=== PATIENT | male | born 1970 | race Hispanic/Latino ===

== ENCOUNTER 2020-09-30 22:34 | Emergency (ER) | payer MEDICARE, OTHER ==
[~2020-09-30] VITALS: Ht 162.6 cm; Wt 90.7 kg
[2020-10-01 00:33] VITALS: BP 157/95
== END 2020-10-01 00:33 | disposition home or self-care (01) ==
LOC: FSED 23:10
DX: G51.0 Bell's palsy (principal); I10 Essential (primary) hypertension
CPT/HCPCS: 70450; 99283

== ENCOUNTER 2023-11-19 11:58 | Emergency (ER) | payer MEDICAID, MEDICARE ==
[~2023-11-19] VITALS: Ht 162.6 cm; Wt 88.9 kg
[~2023-11-19 11:58] MED LIST: METHOCARBAMOL500 MG PO
[2023-11-19 12:06] VITALS: PULSE 65; RESP 18
[2023-11-19 12:56] LABS: BASOPHILS # (AUTO) 0.1 (0.0-0.1); BASOPHILS % 0.7 % (0.0-1.0); EOSINOPHILS # (AUTO) 0.3 (0.0-0.4); EOSINOPHILS % 3.6 % (0.0-6.0); HEMATOCRIT 45.1 % (38.2-49.6); HEMOGLOBIN 15.2 g/dL (14.0-18.0); LYMPHOCYTES # (AUTO) 2.2 (1.0-3.2); LYMPHOCYTES % 30.7 % (18.0-39.1); MEAN CORPUSCULAR HGB CONC 33.7 g/dL (31-35); MEAN CORPUSCULAR VOLUME 94.9 fL (81-99); MONOCYTES # (AUTO) 0.7 (0.2-0.8); MONOCYTES % 9.5 % (4.4-11.3); NEUTROPHILS % 55.4 % (38.7-80.0); PLATELET COUNT 243 x10e3/uL (140-360); RED BLOOD COUNT 4.75 x10e6/uL (4.3-5.7); RED CELL DISTRIBUTION WIDTH 13.1 % (11.7-14.4); WHITE BLOOD COUNT 7.14 x10e3/uL (4.8-10.8)
[2023-11-19 13:14] LABS: INR 0.94
[2023-11-19 13:21] LABS: ALBUMIN 3.9 g/dL (3.5-5.0); ALBUMIN/GLOBULIN RATIO 0.9 (0.8-2.0); ANION GAP 14.9 mmol/L (8-16); BILIRUBIN,TOTAL 0.5 mg/dL (0.2-1.2); CALCIUM 9.1 mg/dL (8.4-10.2); CREATININE, SERUM 0.83 mg/dL (0.72-1.25); POTASSIUM 3.9 mmol/L (3.5-5.1); TOTAL PROTEIN 8.1 g/dL (6.5-8.1)
[2023-11-19] MEDS ORDERED: IOPAMIDOL 370 MG/ML 100 ML INFUS..BTL INJ ONE (13:31)
[2023-11-19] MEDS ORDERED: SODIUM CHLORIDE 0.9% 100 ML ONE (13:31)
[2023-11-19] MEDS ORDERED: PREDNISONE20 MG PO (14:38)
[2023-11-19 14:54] VITALS: BP 146/78; PULSE 72; RESP 17; O2SAT 100
== END 2023-11-19 14:56 | disposition home or self-care (01) ==
LOC: ER 12:28
DX: G51.0 Bell's palsy (principal); R51.9 Headache, unspecified
CPT/HCPCS: 36415; 70496; 70498; 80053; 84484; 85025; 85610; 93005; 99284; J7050; Q9967